=== PATIENT | female | born 2000 | race Caucasian/White ===

== ENCOUNTER 2023-05-20 07:25 | Inpatient (IN) | payer OTHER, MEDICAID, SELFPAY ==
[2023-05-20] VITALS (38 sets, daily range): BP systolic 95–139; BP diastolic 50–81; PULSE 63–102; RESP 16–17; TEMP 35.9–36.6; O2SAT 85–100; BMI 36.6
[2023-05-20] MEDS: Lactated Ringers 1,000 ML 50 ML IV (08:00)
[2023-05-20] MEDS: Oxytocin 15 Units/NS 250ml 15 UNITS/250 ML IV.SOLN 2 UNITS IV (08:11)
--- NOTE | 2023-05-20 08:30 | PCM.HP.OB ---
HPI - General General Date of Admission: 05/20/23 HPI Narrative GUY VALNECIA, is a 23 F at 39 weeks gestation who presents for elective induction of labor. She was a transfer of care from [place] at 33 weeks gestation. has been uncomplicated. GBS negative. Maternal Data Information SHEMAR Calculator Estimated Delivery Date Method Current WG Current Estimate 05/27/23 Manual 39w 0d PFSH PFSH Medical History no medical history Home Medications ryvzigoa-ywt-Rk-FA 1 mg tablet 1 tab PO DAILY 05/20/23 [History Last Taken 05/19/23 08:00 1 TAB] Allergy/AdvReac Type Severity Reaction Status Date / Time No Known Allergies Allergy Verified 05/20/23 08:04 Family History no significant family his Surgical History no surgical history Social History Smoking Status: Never smoker History Elective abortions Hx Para 2 Spontaneous abortions Hx # Term Pregnancies Ectopic pregnancies Hx # Pregnancies Multiple births # of living children ROS Eyes Eyes: Denies blurry vision, change in vision or spots in vision ENT HEENT: Denies dizziness or headache(s) Cardiovascular Cardiovascular: Denies abdominal pain, chest pain or dyspnea Respiratory/Chest Respiratory/Chest: Denies cough, dyspnea, shortness of breath at rest or shortness of breath with exertion Gastrointestinal Gastrointestinal: Denies abdominal pain, diarrhea or vomiting Genitourinary Genitourinary: Denies change in urinary stream, difficulty urinating or dysuria Musculoskeletal Musculoskeletal: Reports none Integumentary Integumentary: Denies rash Neurologic Neurologic: Denies dizziness, headache(s), memory loss or weakness Psychiatric Psychiatric: Reports none Vital Signs Vital Signs Vital Signs: 05/20/23 07:45 05/20/23 07:45 05/20/23 07:45 Temperature Temperature Source Pulse Rate 102 H Blood Pressure 112/55 L BP Systolic 112 BP Diastolic 55 Pulse Ox 97 05/20/23 07:45 05/20/23 07:45 05/20/23 07:45 Temperature 96.7 F L Temperature Source Temporal Pulse Rate Blood Pressure BP Systolic BP Diastolic Pulse Ox 97 Weight Weight: 207 lb 0.225 oz Body Mass Index (BMI) 36.6 Physical Exam Const alert, oriented x3 and no apparent distress General Appearance: cooperative Orientation / Consciousness: awake Exam Limitations: no limitations HEENT normocephalic Head and Scalp: normal to inspection Eyes General Eye: normal appearance of both eyes Neck full ROM and no lymphadenopathy Lymph Lymphatic: no lymphadenopathy noted Chest inspection of chest normal Resp normal respiratory effort, normal air movement and clear to auscultation bilaterally Effort and Inspection: able to speak in complete sentences and symmetric chest movement Cardio regular rate and regular rhythm GI normal to inspection, nondistended, normoactive bowel sounds Manual OB Exam: presentation cephalic Back/Spine normal ROM Extremity full ROM and no calf tenderness Skin no rashes or lesions noted General Skin Exam: no breakdown Neuro oriented x3 and CN's II-XII intact bilaterally Psych mental status grossly normal and thought process normal Labs Labs Labs: Blood Type O POSITIVE Antibody Screen NEGATIVE Hct 33.0 % (37-47) L Hgb 10.0 g/dL (12.0-15.0) L Syphilis Total Ab Non-reactive GBS negative Assessment & Plan (1) 39 weeks gestation of : (2) Encounter for elective induction of labor: (3) Short interval between pregnancies affecting , antepartum: (4) with care elsewhere: PLAN: Plan Admit to labor and delivery Routine labs Start IV and run fluids per orders Start Pitocin IV at 2 mu/min and increase per orders AROM for clear fluid Epidural when indicated Anticipate Dr. Hartmann notified of admission and is collaborating physician
[2023-05-20 08:33] LABS: Absolute Lymphocyte Count 2.33 X10^3/uL (0.83-4.51); Absolute Neutrophil Count 5.8 X10^3/uL (2.0-7.7); Basophil# 0.02 X10^3/uL; Basophil% 0.2 % (0-1); Eosinophils% 1.1 % (0-5); Lymphocyte # 2.33 X10^3/ul (0.83-4.51); Lymphocyte % 25.5 % (19-41); Mean Corp Hgb Conc 30.3 g/dL (32-36); Mean Corpuscular Hgb 21.6 pg (27.0-32.0); Mean Corpuscular Volume 71.1 fL (81-99); Mean Platelet Vol. 11.6 fl (6.2-12.0); Monocyte# 0.83 X10^3/uL; Monocyte% 9.1 % (0-10); NRBC Flagged by Analyzer 0 % (0-5); Neutrophil # 5.77 X10^3/uL (2.7-7.7); Neutrophil % 63.2 % (47-70); Platelet Count 246 K/mm3 (150-450); RBC Distribution Width CV 15.4 % (11.6-14.6); RBC Distribution Width SD 38.5 fl (35.1-43.9); Red Blood Count 4.64 M/mm3 (4.2-5.4); White Blood Count 9.1 K/mm3 (4.4-11.0)
[2023-05-20 09:07] LABS: Syphilis Antibodies Non-reactive
[2023-05-20] MEDS: LACTATED RINGERS 500 ML 999 ML IV (09:45)
[2023-05-20] MEDS: fentaNYL-bupivacaine (epidural) 100 ML BAG EPIDURAL (11:01)
--- NOTE | 2023-05-20 12:36 | EX.PCM.OBRPT ---
Assessment & Plan (1) (spontaneous vaginal delivery): (2) Short interval between pregnancies affecting , antepartum: (3) Encounter for elective induction of labor: Maternal Data Information SHEMAR Calculator Estimated Delivery Date Method Current WG Current Estimate 05/27/23 Manual 39w 0d Vaginal Delivery Maternal Presentation Maternal Presentation: Elective Induction Maternal Presentation: at 39 weeks gestation for elective induction of labor. Type of Induction: Pitocin and Amniotomy Medical Reason for Induction: - (Elective) Operative Information Date of Procedure: 05/20/23 Pre-Operative Diagnosis: Term gestation, induction of labor Post-Operative Diagnosis: , Live female Surgery / Procedure Performed: Spontaneous Vaginal Delivery Type of Anesthesia: Epidural Estimated Blood Loss: 150 Time of Delivery: 12:14 Findings Description of Procedure: Called to patient's room for patient feeling pushy. With minimum maternal effort, head delivered over intact perineum followed immediately by body. Loose CAN x 1 reduced. Vigorous female placed on maternal abdomen and was attended to by nursing staff. IV Pitocin started for active management of the third stage of labor. Straight cath placed for 150 cc yellow urine. 3 vessel cord clamped and cut by FOB after delay and infant placed skin to skin with patient. Placenta delivered spontaneously and intact. Vaginal sweep completed by me. Vagina and perineum intact. Hemostasis obtained. Fundus firm 2 below U. EBL 150 cc. APGARS 8/9. Patient and infant bonding at this time. Dr. Hartmann notified of delivery. Presentation: Vertex Amniotic Membrane Rupture Type: Artificial Time of Membrane Rupture: 0840 Amniotic Fluid Description: Clear Placental Delivery Description: Spontaneous Placenta Disposition: [facility] Cord Vessel Description: 3 Vessels Cord Entanglement: Around neck x 1, loose Nuchal Cord Compression: Without compression Infant A Gender: Female (1 minute): 8 (5 minute): 9 Delayed Cord Clamping: Yes Post Vaginal Delivery Medications Given After Delivery: IV Pitocin and IM Pitocin Episiotomy Description: None Laceration: None Complication Complications: None
[2023-05-20] MEDS: Oxytocin 15 Units/NS 250ml 15 UNITS/250 ML IV.SOLN 83 UNITS IV (12:45)
[2023-05-20] MEDS: Acetaminophen 500 MG Tablet 1000 MG PO (20:27)
[2023-05-21] VITALS (7 sets, daily range): BP systolic 102–112; BP diastolic 65–72; PULSE 62–100; RESP 16–18; TEMP 36.2–36.7; O2SAT 98–99
[2023-05-21] MEDS: Acetaminophen 500 MG Tablet 1000 MG PO ×2 (04:24→12:48)
--- NOTE | 2023-05-21 06:38 | PN.OBGYN_ITS ---
Subjective Subjective Patient seen at bedside. Ambulating and voiding without difficulty. Denies headache, dizziness, CP, or SOB. Lochia decreasing. with minimal support. Desires discharge home today. Objective Data Objective Data Vital Signs: Vital Signs Temp Pulse Resp BP Pulse Ox O2 Del Method 97.1 F L 90 16 102/65 98 Room Air 05/21/23 04:20 05/21/23 04:21 05/21/23 04:20 05/21/23 04:21 05/21/23 04:20 05/21/23 04:20 Oxygen Delivery Method Room Air Weight: 207 lb 0.225 oz Body Mass Index (BMI) 36.6 Intake & Output: Intake and Output for Last 24 Hours 05/19/23 05/20/23 05/21/23 23:59 23:59 23:59 Intake Total 1173.03 / 1173.03 Output Total 750 / 750 Balance 423.03 / 423.03 Lab / Micro Data 05/20/23 08:00 Labs: Laboratory Results - last 24 hr 05/20/23 08:00: WBC 9.1, RBC 4.64, Hgb 10.0 L, Hct 33.0 L, MCV 71.1 L, MCH 21.6 L, MCHC 30.3 L, RDW Std Deviation 38.5, RDW Coeff of Deshaun 15.4 H, Plt Count 246, MPV 11.6, Immature Gran % (Auto) 0.900, Neut % (Auto) 63.2, Lymph % (Auto) 25.5, Brooks % (Auto) 9.1, Eos % (Auto) 1.1, Baso % (Auto) 0.2, Absolute Neuts (auto) 5.8, Absolute Lymphs (auto) 2.33, Nucleated RBC % 0, Syphilis Total Ab Non- reactive, Blood Type O POSITIVE, Antibody Screen NEGATIVE ROS Eyes Eyes: Denies blurry vision, change in vision or spots in vision ENT HEENT: Denies dizziness or headache(s) Cardiovascular Cardiovascular: Denies abdominal pain, chest pain or dyspnea Respiratory/Chest Respiratory/Chest: Denies cough, dyspnea, shortness of breath at rest or shortness of breath with exertion Gastrointestinal Gastrointestinal: Denies abdominal pain, diarrhea or vomiting Genitourinary Genitourinary: Denies change in urinary stream, difficulty urinating or dysuria Musculoskeletal Musculoskeletal: Reports none Integumentary Integumentary: Denies rash Neurologic Neurologic: Denies dizziness, headache(s), memory loss or weakness Physical Exam Const alert and no apparent distress General Appearance: cooperative and comfortable Exam Limitations: no limitations HEENT normocephalic Eyes General Eye: normal appearance of both eyes Neck full ROM General: normal visual inspection Chest Chest: symmetrical chest wall rise Resp normal respiratory effort and normal air movement Effort and Inspection: symmetric chest movement Auscultation: clear to auscultation bilaterally Cardio regular rate and regular rhythm GI normal to inspection, nondistended, normoactive bowel sounds Back/Spine normal ROM Extremity full ROM and no calf tenderness General Extremity: normal exam except as noted Skin no rashes or lesions noted Neuro CN's II-XII intact bilaterally Psych mental status grossly normal Assessment & Plan (1) (spontaneous vaginal delivery): (2) Care and examination of lactating mother: PLAN: Plan PPD 1 - intact support Denies pain Desires discharge home at 24 hours Instructions provided and lasted <30 minutes Follow up in office
--- NOTE | 2023-05-21 06:40 | DCINST_ITS ---
Discharge Instructions Diet Discharge Diet: No restrictions Activity Discharge Activity: Return to Normal Activity, May Shower and May Take a Tub Bath May resume sexual activity in: 4-6 weeks Weight Bearing Status: Weight bearing as tolerated Dressing / Incision Call your doctor if you observe: Fever of 101 or Higher, Inability to urinate, Using more than 1 pad per hour, Shortness of breath, Dizziness, Swelling in the ankles, Chest pain, Calf discomfort and Uncontrolled pain Follow Up Care Please Follow Up With: Meagan Calix CNM When: Within 14 days Test Results: Test results from this visit will be discussed in further detail at your follow- up appointment, if applicable. Discharge Plan Admission Admit Date/Time: 05/20/23 07:25 Primary Reason for Your Visit: Labor and Delivery Attending Provider: Meagan Calix Discharge Orders/Prescriptions Prescriptions: New acetaminophen 500 mg Tablet 1,000 mg PO Q6H PRN PRN (Reason: Pain 1-10 Or Fever) Qty: 0 0RF ibuprofen 600 mg Tablet 600 mg PO Q6H PRN PRN (Reason: Pain Score 1-3) Qty: 0 0RF Continued jddwakgy-kxi-Ev-FA 1 mg tablet 1 tab PO DAILY Disposition Disposition (needs filled in before D/C Order can be placed): Home, Self Care
--- NOTE | 2023-05-21 13:38 | CASEMGMT ---
Social Work Assessment Labor and Delivery Unit Patient Address:[address] [place] [address] [address] [place] [address] Phone number: [phone] Date of Referral: 05/20/23 Time of Referral:? 1830 Referred By: Meagan Calix Date of Intervention: ??05/21/23 Time of Intervention:? 1114 Reason for Referral:? flat affect Sw completed chart review and acknowledges social work consult due to maternal affect being flat. Sw presented to bedside and introduced self to mother of baby (DILSHAD Slaughter). MOB was laying on the couch upon sw entry to room. Sw did not observe MOB to be holding baby, and baby was not in crib. Sw asked MOB where baby was, and MOB pointed to bed. On bed with blankets around her was baby laying sideways. Sw pointed out to MOB that they is not safe sleep, and educated MOB on importance of practicing safe sleep at all times with baby. MOB expressed understanding, but did not pick baby up. While MOB completed Candor Depression Scale sw asked to hold baby and MOB agreed. Sw completed psychosocial assessment and provided support and education. History obtained from: medical records and mother of baby (LONNY)??? Household composition: Currently residing in the home is MOB, father of baby (FOTiburcio- Stone), FOB's older daughter, Alley (7 years old), and two other children that MOB and FOB have together (Nat- 3, and Maelynn- 1). MOB states that housing is safe and adequate- denies concerns. MOB stated that they recently bought a new house that FIDELIA has been doing some remodeling to. Patient's parent/guardian status:?MOB states that she and FOTiburcio have been together for 5 years, they met through mutual friends. MOB denies any concerns of domestic violence or intimate partner violence. Medical History: LONNY is 4, para 2- now 3 with the of new baby. MOB received routine care with [facility] during . MOB delivered baby at 39 weeks gestation via vaginal delivery. Baby girl, named Nina Murray, was born on 05/20/23 weighing 6lb 9oz and her apgars were 8 and 9 at one and five minutes of life respectfully. MOB states that she is and it is going well. Educational Status:?MOB states that both parents completed high school, no college education for either parent. Financial Status:LONNY is a stay at home mom, FOB is a business manager contact. Infant Supplies:?LONNY states that she has everything that she needs for baby, including: car seat, safe sleep space, clothes, diapers, wipes and breast pump. Childcare/Caregiver(s):? LONNY will be the primary caregiver to baby, along with FOB when he is not at work. MOB states that if they need assistance with anything they have family members that live close who are able to help them. Transportation:?? LONNY and FOB both have their drivers license and reliabel transportation. No transportation barriers at this time. Programs/Agencies Involved: ??LONNY denies linakge to any community agencies at this time. List of [place] resources was provided for LONNY should a need presnet itself. ? Children Services/Legal Issues:??? LONNY denies former involvement with Children Services. NO issues or concerns warranting referral at this time. Behavioral Health Issues: ??Mental Health History: LONNY denies history of mental health diagnoses for herself or FOB. Due to it being reported that MOB had flat affect, which sw also observed, sw asked LONNY to complete Candor Depression Scale. Her score was a 3. Sw educated MOB on her score and provided information/ education on signs and symptoms of baby blues and depression. ??? Substance Use History:?LONNY denies substance use prior to and during . ? Family History:?LONNY denies family history of mental health and substance use. ? Drug Screens: No urine screens observed in chart review. Family/Social Stressors:?LONNY denies any needs, issues or concerns at this time Support Systems: LONNY states that her biggest support are FOB and his mom Depression/Shaken Baby/Safe Sleeping: Sw provided education regarding signs and symptoms of baby blues and depression to look for to MOB and FOB. Sw educated parents on shaken baby prevention and ABCs of safe sleep. Parents expressed understanding. ASSESSMENT:? MOB made eye contact during sw assessment. MOB did appear to have flat affect, and had nervous laugh, smile during parts of assessment. FOB arrived towards end of assessment and was very appreciative and thankful for information sw provided. PLAN:? MOB and baby to be discharged when medically ready. ?No other services requested or indicated. Marichuy Allison, DEPUTY CLERK, [employer]
== END 2023-05-21 15:05 | disposition home or self-care (01) | DRG 560 ==
PROVIDERS: Admitting Provider Advanced Practice Midwife; Referring Provider Advanced Practice Midwife; Visit Provider Advanced Practice Midwife
DX: O69.81X0 Labor and delivery complicated by cord around neck, without compression, not applicable or unspecified (principal); Z37.0 Single live birth; Z3A.39 39 weeks gestation of pregnancy
CPT/HCPCS: 59025; 59050; 85025; 86780; 86850; 86900; 86901; 99221; J7120; G0378

== ENCOUNTER 2024-05-12 09:51 | Inpatient (IN) | payer OTHER, MEDICAID, SELFPAY ==
[2024-05-12] VITALS (29 sets, daily range): BP systolic 83–114; BP diastolic 40–71; PULSE 54–80; RESP 16–18; TEMP 36.4–36.8; O2SAT 80–100; BMI 36.6
[2024-05-12] MEDS: Lactated Ringers 1,000 ML 200 ML IV ×3 (09:50→14:49)
[2024-05-12] MEDS: Penicillin G Pot 5,000,000 UNITS in 0.9% Normal Saline (100mL MB+) 100 ML 150 UNITS IV (10:23)
[2024-05-12 10:24] LABS: Absolute Lymphocyte Count 1.93 X10^3/uL (0.83-4.51); Absolute Neutrophil Count 8.9 X10^3/uL (2.0-7.7); Basophil# 0.03 X10^3/uL; Basophil% 0.3 % (0-1); Eosinophil# 0.07 X10^3/uL; Eosinophils% 0.6 % (0-5); Hematocrit 36.2 % (37-47); Lymphocyte # 1.93 X10^3/ul (0.83-4.51); Lymphocyte % 16.5 % (19-41); Mean Corp Hgb Conc 30.4 g/dL (32-36); Mean Corpuscular Volume 72.4 fL (81-99); Monocyte# 0.75 X10^3/uL; Monocyte% 6.4 % (0-10); NRBC Flagged by Analyzer 0 % (0-5); Neutrophil # 8.89 X10^3/uL (2.7-7.7); Neutrophil % 75.7 % (47-70); POSITIVE MORPHOLOGY YES; Platelet Count 203 K/mm3 (150-450); RBC Distribution Width CV 27.1 % (11.6-14.6); RBC Distribution Width SD 65.6 fl (35.1-43.9); White Blood Count 11.7 K/mm3 (4.4-11.0)
[2024-05-12 10:29] LABS: Differential Indicated SCAN CRITERIA MET
[2024-05-12 10:56] LABS: Syphilis Antibodies Non-reactive
--- NOTE | 2024-05-12 11:06 | PCM.HP.OB ---
HPI - General General Date of Admission: 05/12/24 Date of Service: 05/12/24 Chief Complaint: labor HPI Narrative GUY VALENCIA, is a 23 F 5 para 3-0-1-3 who presents at 38-2/7 weeks gestation complaining contractions since 3 AM. She arrived in labor and delivery and was found to be 7 cm in active labor. is complicated to date by iron deficiency anemia, urinary tract infection and late care. Maternal Data Information Final SHEMAR: 05/24/24 Gestational age: 38 2/7 PFSH [facility] Medical History (Updated 05/12/24 @ 11:[address] Aida Almendarez MD) HIV infection Care and examination of lactating mother (spontaneous vaginal delivery) with care elsewhere Short interval between pregnancies affecting , antepartum Encounter for elective induction of labor 39 weeks gestation of Home Medications ?Medication ?Instructions ?Recorded ?Last Taken ?Type iszcwfti-chv-An-FA 1 mg 1 tab PO DAILY 05/20/23 05/10/24 22:00 History tablet 1 TAB ferrous sulfate 325 mg (65 mg 325 mg PO DAILY anemia 05/12/24 05/11/24 19:00 History iron) tablet (Iron (ferrous 325 mg sulfate)) Allergy/AdvReac Type Severity Reaction Status Date / Time No Known Allergies Allergy Verified 05/12/24 10:32 Family History no significant family his Social History Smoking Status: Never smoker History Elective abortions Hx Para 3 Spontaneous abortions Hx # Term Pregnancies Ectopic pregnancies Hx # Pregnancies Multiple births # of living children ROS Constitutional Constitutional: Denies fatigue, fever(s) or malaise Eyes Eyes: Denies change in vision ENT HEENT: Denies dizziness or headache(s) Cardiovascular Cardiovascular: Denies chest pain, dyspnea or lightheadedness Respiratory/Chest Respiratory/Chest: Denies cough or dyspnea Gastrointestinal Gastrointestinal: Denies change in bowel habits Genitourinary Genitourinary: Denies burning urination or genital lesions Integumentary Integumentary: Denies rash Neurologic Neurologic: Denies confusion, dizziness, headache(s), numbness or weakness Vital Signs Vital Signs Vital Signs: Weight Weight: 93.9 kg Body Mass Index (BMI) 36.6 Physical Exam Const alert and no apparent distress Narrative: Fundus firm, below umbilicus. Labs Labs Labs: Blood Type O POSITIVE Antibody Screen NEGATIVE Hct 36.2 % (37-47) L Hgb 11.0 g/dL (12.0-15.0) L Syphilis Total Ab Non-reactive Assessment & Plan (1) Spontaneous onset of labor: PLAN: High risk multigravida in spontaneous labor. Group B strep prophylaxis initiated. May have routine pain control measures as desired and as needed during labor. Estimated weight is less than 4500 g clinically and pelvis clinically adequate to expect vaginal delivery. (2) 38 weeks gestation of : (3) GBS (group B Streptococcus carrier), +RV culture, currently : (4) Maternal obesity syndrome in third trimester: (5) BMI 36.0-36.9,adult:
[2024-05-12 11:08] LABS: Anisocytosis 2+; Differential Comment SCANNED; Macrocytosis 1+; Microcytosis 1+
[2024-05-12] MEDS: fentaNYL-bupivacaine (epidural) 100 ML BAG EPIDURAL ×2 (12:12→16:33)
[2024-05-12] MEDS: Penicillin G 3,000,000 Units 50 ML 100 UNITS IV (14:50)
--- NOTE | 2024-05-12 17:00 | PCM.PN.BLA ---
Progress Note pt comfortable with epidural. Assessment & Plan Assessment/Plan (1) 38 weeks gestation of : PLAN: Cvx /-1, head well applied. AROM performed for moderate clear fluid. Category 1 tracing. (2) Spontaneous onset of labor: (3) GBS (group B Streptococcus carrier), +RV culture, currently : (4) Maternal obesity syndrome in third trimester: (5) BMI 36.0-36.9,adult:
[2024-05-12] MEDS: Oxytocin 15 Units/NS 250ml 15 UNITS/250 ML IV.SOLN 334 UNITS IV (18:37)
--- NOTE | 2024-05-12 18:44 | PCM.OPRPT ---
Problems Associated Problem List Diagnoses (1) BMI 36.0-36.9,adult: (2) Maternal obesity syndrome in third trimester: (3) GBS (group B Streptococcus carrier), +RV culture, currently : (4) 38 weeks gestation of : (5) Spontaneous onset of labor: (6) Vaginal delivery: Report of Operation Date of Procedure: 05/12/24 Pre-Operative Diagnosis: 38 week gestation, obesity in , spontaneous onset of labor Post-Operative Diagnosis: As above Surgery/Procedure Performed:: Description of Surgical Findings:: VFI in NINI position. Normal appearing placenta with 3VC Surgeon: Coleen Quinn Type of Anesthesia: Epidural Special Medications: None Specimen's removed: Placenta Drains: None Estimated Blood Loss (mL): 300 Fluids Replaced: N/A Description of Procedure: Patient prepped and draped once complete. With 1 contraction patient pushed to deliver infant head in left occiput anterior position. Anterior shoulder was delivered with gentle downward traction, followed by the posterior shoulder and body of the without any excessive traction, force, or delay. A vigorous viable female infant was placed on maternal abdomen. The cord was clamped and cut after a 60 second delay by a family member. Cord blood was obtained. Placenta delivered with fundal massage and was noted to be normal-appearing and intact with a three-vessel cord. The uterus was explored x 1. Fundus firm and Pitocin running. No lacerations noted. Sponge and sharp counts were correct. A vaginal sweep was performed. Grafts/Implants Used: None Complications None Admit VTE Documentation VTE Present on Admission: No VTE Mechan Device Prophylaxis: SCD's
[2024-05-12] MEDS: Oxytocin 15 Units/NS 250ml 15 UNITS/250 ML IV.SOLN 83 UNITS IV (19:08)
[2024-05-13] VITALS (10 sets, daily range): BP systolic 90–120; BP diastolic 44–68; PULSE 52–83; RESP 16; TEMP 36.2–36.7; O2SAT 97–100
--- NOTE | 2024-05-13 05:05 | PN.OBGYN_ITS ---
Subjective Subjective Patient doing well and offers no complaints. She is resting comfortably. No issues or concerns overnight per nursing staff. Objective Data Objective Data Vital Signs: Vital Signs Temp Pulse Resp BP Pulse Ox O2 Del Method 97.5 F L 53 L 16 90/44 L 97 Room Air 05/13/24 03:57 05/13/24 04:01 05/13/24 03:57 05/13/24 04:00 05/13/24 04:01 05/13/24 03:57 Oxygen Delivery Method Room Air Weight: 207 lb 0.225 oz Body Mass Index (BMI) 36.6 Intake & Output: Intake and Output for Last 24 Hours 05/11/24 05/12/24 05/13/24 23:59 23:59 23:59 Intake Total 3200.64 / 3200.64 Output Total 1025 / 1025 225 / 225 Balance 2175.64 / 2175.64 -225 / -225 Lab / Micro Data 05/12/24 09:50 Labs: Laboratory Results - last 24 hr 05/12/24 09:50: WBC 11.7 H, RBC 5.00, Hgb 11.0 L, Hct 36.2 L, MCV 72.4 L, MCH 22.0 L, MCHC 30.4 L, RDW Std Deviation 65.6 H, RDW Coeff of Deshaun 27.1 H, Plt Count 203, MPV 11.0, Immature Gran % (Auto) 0.500, Neut % (Auto) 75.7 H, Lymph % (Auto) 16.5 L, [place] % (Auto) 6.4, Eos % (Auto) 0.6, Baso % (Auto) 0.3, Absolute Neuts (auto) 8.9 H, Absolute Lymphs (auto) 1.93, Nucleated RBC % 0, Differential Comment SCANNED, Anisocytosis 2+, Microcytosis 1+, Macrocytosis 1+, Syphilis Total Ab Non-reactive, Blood Type O POSITIVE, Antibody Screen NEGATIVE Physical Exam Const alert and no apparent distress Constitutional Narrative: Patient was up to bathroom upon first entering room with RN at bedside Patient was then sleeping upon entering room second time and woke up briefly to answer questions General Appearance: comfortable Assessment & Plan (1) Vaginal delivery: PLAN: PPD#1 s/p . Pt desires discharge home. Doing well.
--- NOTE | 2024-05-13 05:07 | DCINST_ITS ---
Discharge Instructions Diet Discharge Diet: No restrictions Activity Discharge Activity: May Drive and May Shower May resume sexual activity in: 6 weeks Weight Bearing Status: Weight bearing as tolerated Lifting Restrictions: nothing heavier than baby Dressing / Incision Call your doctor if you observe: Fever of 101 or Higher, Coldness, Increased Pain, Numbness or Tingling, Change in Color, Inability to urinate, Inability to have a bowel movement, Using more than 1 pad per hour, Shortness of breath, Dizziness, Fainting spells, Swelling in the ankles, Chest pain, Prolonged hiccupping, Increased palpitations (irregular heartbeat), Calf discomfort and Uncontrolled pain Cleanse incision/area with: Soap & Water Follow Up Care Please Follow Up With: Coleen Quinn DO When: 1-2 weeks early 6 week exam Test Results: Test results from this visit will be discussed in further detail at your follow- up appointment, if applicable. Discharge Plan Admission Admit Date/Time: 05/12/24 18:43 Primary Reason for Your Visit: Delivery Attending Provider: Coleen Quinn Instructions Patient Instructions: After a Vaginal Discharge Orders/Prescriptions Prescriptions: Continued wqayfqex-qdi-Wp-FA 1 mg tablet 1 tab PO DAILY Discontinued ferrous sulfate [Iron (ferrous sulfate)] 325 mg (65 mg iron) tablet 325 mg PO DAILY Disposition Disposition (needs filled in before D/C Order can be placed): Home, Self Care
[2024-05-13] MEDS: Ibuprofen 600 MG Tablet PO ×2 (08:51→17:14)
[2024-05-13] MEDS: Benzocaine/Lanolin/Aloe Vera 85 GM Spray 1 SPRAY TOPICAL (12:24)
== END 2024-05-13 18:40 | disposition home or self-care (01) | DRG 806 ==
PROVIDERS: Admitting Provider Obstetrics & Gynecology; Referring Provider Obstetrics & Gynecology; Visit Provider Obstetrics & Gynecology
DX: O26.03 Excessive weight gain in pregnancy, third trimester (principal); Z37.0 Single live birth; O98.72 Human immunodeficiency virus [HIV] disease complicating childbirth; Z21 Asymptomatic human immunodeficiency virus [HIV] infection status; D50.9 Iron deficiency anemia, unspecified; O99.02 Anemia complicating childbirth; O99.824 Streptococcus B carrier state complicating childbirth; Z3A.38 38 weeks gestation of pregnancy
CPT/HCPCS: 59025; 59050; 85025; 86780; 86850; 86900; 86901; 99221; J7120; G0378